=== PATIENT | female | born 1950 | race Asian ===

== ENCOUNTER 2024-03-07 09:17 | Inpatient (IN) | payer OTHER ==
[2024-03-07 10:39] LABS: BASO % 0.7 % (0-2.0); EOS % 2.5 % (0-4.5); HEMATOCRIT 32.4 % (32.4-45.2); HEMOGLOBIN 10.8 GM/dL (10.7-15.3); MCH 28.3 pg (25.7-33.7); MCHC 33.2 g/dl (32.0-36.0); MEAN CELL VOLUME 85.3 fl (80-96); MEAN PLT VOLUME 6.5 fl (7.5-11.1); MONO % 7.9 % (3.8-10.2); NEUT % 57.9 % (42.8-82.8); PLATELET COUNT 321 10^3/uL (134-434); RDW 13.4 % (11.6-15.6); WHITE BLOOD COUNT 7.1 K/mm3 (4.0-10.0)
[2024-03-07 10:52] LABS: INR 0.98 (0.83-1.09); PROTHROMBIN TIME (PATIENT) 11.1 SEC (9.7-13.0)
[2024-03-07 10:54] LABS: ACTIVATED PTT 33.9 SECONDS (25.2-36.5)
[2024-03-07 11:18] LABS: POTASSIUM 4.1 mmol/L (3.5-5.1)
[2024-03-07 11:20] LABS: BLOOD UREA NITROGEN 15.3 mg/dL (7-18); CALCIUM 8.5 mg/dL (8.5-10.1)
[2024-03-07 11:21] LABS: ALBUMIN 3.4 g/dl (3.4-5.0)
[2024-03-07 11:24] LABS: CREATININE 0.7 mg/dL (0.55-1.3)
[2024-03-07 11:25] LABS: BILIRUBIN,TOTAL 0.3 mg/dL (0.2-1); TOT PROT 8.3 g/dl (6.4-8.2)
[2024-03-07] MEDS: LACTATED RINGERS SOLUTION 1,000 ML IV SCH (11:51)
[2024-03-07 18:14] VITALS: BMI 20.2
[2024-03-07 20:53] LABS: HEMATOCRIT 25.1 % (32.4-45.2); HEMOGLOBIN 8.2 GM/dL (10.7-15.3); MCH 27.7 pg (25.7-33.7); MCHC 32.7 g/dl (32.0-36.0); MEAN CELL VOLUME 84.9 fl (80-96); MEAN PLT VOLUME 6.6 fl (7.5-11.1); PLATELET COUNT 277 10^3/uL (134-434); RBC 2.95 M/mm3 (3.60-5.2); RDW 13.4 % (11.6-15.6); WHITE BLOOD COUNT 7.6 K/mm3 (4.0-10.0)
[2024-03-08] MEDS ORDERED: MAGNESIUM SULF 50% (8.12 MEQ/2 ML-1 GM VIAL) ONE (02:56)
[2024-03-08 02:59] LABS: HEMATOCRIT 24.7 % (32.4-45.2); HEMOGLOBIN 8.2 GM/dL (10.7-15.3); MCHC 33.4 g/dl (32.0-36.0); MEAN CELL VOLUME 83.8 fl (80-96); PLATELET COUNT 300 10^3/uL (134-434); RBC 2.95 M/mm3 (3.60-5.2); RDW 13.2 % (11.6-15.6); WHITE BLOOD COUNT 6.8 K/mm3 (4.0-10.0)
[2024-03-08] MEDS: MAGNESIUM 1GM/D5W - 1 GM/100 ML IVPB IVPB ONE (03:04)
[2024-03-08 07:47] LABS: BASO % 0.8 % (0-2.0); EOS % 1.1 % (0-4.5); HEMATOCRIT 24.7 % (32.4-45.2); HEMOGLOBIN 8.3 GM/dL (10.7-15.3); LYMPH % 38.9 % (8-40); MCH 28.5 pg (25.7-33.7); MCHC 33.6 g/dl (32.0-36.0); MEAN CELL VOLUME 84.7 fl (80-96); MEAN PLT VOLUME 6.8 fl (7.5-11.1); MONO % 7.2 % (3.8-10.2); PLATELET COUNT 281 10^3/uL (134-434); RBC 2.91 M/mm3 (3.60-5.2); RDW 13.5 % (11.6-15.6)
[2024-03-08 07:57] LABS: INR 1.03 (0.83-1.09); PROTHROMBIN TIME (PATIENT) 11.8 SEC (9.7-13.0)
[2024-03-08 08:11] LABS: POTASSIUM 3.5 mmol/L (3.5-5.1)
[2024-03-08 08:14] LABS: CALCIUM 8.2 mg/dL (8.5-10.1)
[2024-03-08 08:15] LABS: ALBUMIN 2.9 g/dl (3.4-5.0); BLOOD UREA NITROGEN 9.8 mg/dL (7-18); MAGNESIUM 2.4 mg/dL (1.8-2.4)
[2024-03-08 08:18] LABS: CREATININE 0.5 mg/dL (0.55-1.3); PHOSPHOROUS 3.3 mg/dL (2.5-4.9)
[2024-03-08 08:19] LABS: BILIRUBIN,TOTAL 0.4 mg/dL (0.2-1); TOT PROT 6.9 g/dl (6.4-8.2)
[2024-03-08] MEDS ORDERED: BISACODYL 5 MG TABLET.DR (FP) PO ONE (10:00)
[2024-03-08] MEDS: BISACODYL 5 MG TABLET.DR (FP) PO ONE (11:48)
[2024-03-08] MEDS: PEG 3350/NA SULF BICARB CL/KCL 4000 ML SOLN.RECON PO ONE (11:49)
[2024-03-08] MEDS: MAGNESIUM CITRATE 300 ML BOTTLE PO ONE (12:27)
[2024-03-08] MEDS: LACTATED RINGERS SOLUTION 1,000 ML IV SCH (12:30)
[2024-03-08 15:45] LABS: BASO % 0.7 % (0-2.0); EOS % 0.4 % (0-4.5); HEMATOCRIT 25.7 % (32.4-45.2); HEMOGLOBIN 8.5 GM/dL (10.7-15.3); LYMPH % 17.2 % (8-40); MCH 27.9 pg (25.7-33.7); MEAN CELL VOLUME 84.5 fl (80-96); MEAN PLT VOLUME 6.8 fl (7.5-11.1); MONO % 5.3 % (3.8-10.2); NEUT % 76.4 % (42.8-82.8); PLATELET COUNT 295 10^3/uL (134-434); RBC 3.04 M/mm3 (3.60-5.2); RDW 13.4 % (11.6-15.6); WHITE BLOOD COUNT 7.1 K/mm3 (4.0-10.0)
[2024-03-09 08:13] LABS: POTASSIUM 3.3 mmol/L (3.5-5.1)
[2024-03-09 08:17] LABS: IRON SERUM 35 ug/dL (50-175)
[2024-03-09 08:18] LABS: TOTAL IRON BINDING CAPACITY 255 ug/dL (250-450)
[2024-03-09 08:21] LABS: N-TERMINAL BNP 370.5 pg/ml (5-125)
[2024-03-09 08:21] LABS: HEMATOCRIT 21.5 % (32.4-45.2); HEMOGLOBIN 7.3 GM/dL (10.7-15.3); MCH 28.6 pg (25.7-33.7); MCHC 33.8 g/dl (32.0-36.0); MEAN CELL VOLUME 84.7 fl (80-96); MEAN PLT VOLUME 6.7 fl (7.5-11.1); NEUT % 56.6 % (42.8-82.8); PLATELET COUNT 276 10^3/uL (134-434); RBC 2.53 M/mm3 (3.60-5.2); RDW 13.3 % (11.6-15.6); WHITE BLOOD COUNT 6.1 K/mm3 (4.0-10.0)
[2024-03-09 08:22] LABS: BASO % 0.7 % (0-2.0); EOS % 1.6 % (0-4.5); MONO % 7.1 % (3.8-10.2)
[2024-03-09 08:23] LABS: ALBUMIN 2.7 g/dl (3.4-5.0); BLOOD UREA NITROGEN 7.2 mg/dL (7-18)
[2024-03-09 08:26] LABS: CREATININE 0.6 mg/dL (0.55-1.3)
[2024-03-09 08:27] LABS: BILIRUBIN,TOTAL 0.4 mg/dL (0.2-1); TOT PROT 6.4 g/dl (6.4-8.2)
[2024-03-09] MEDS: POTASSIUM CHLORIDE ORAL LIQUID 20 MEQ/15 ML PO ONE (16:40)
[2024-03-09] MEDS ORDERED: INSULIN ASPART SLIDING SCALE (NOVOLOG) 1 VIAL SQ ONE (18:08)
[2024-03-10 08:12] LABS: BLOOD UREA NITROGEN 6.7 mg/dL (7-18); CALCIUM 7.9 mg/dL (8.5-10.1)
[2024-03-10 08:13] LABS: ALBUMIN 2.7 g/dl (3.4-5.0)
[2024-03-10 08:16] LABS: CREATININE 0.6 mg/dL (0.55-1.3)
[2024-03-10 08:17] LABS: BILIRUBIN,TOTAL 0.2 mg/dL (0.2-1); TOT PROT 6.8 g/dl (6.4-8.2)
[2024-03-10 08:21] LABS: BASO % 0.8 % (0-2.0); EOS % 2.4 % (0-4.5); HEMATOCRIT 20.9 % (32.4-45.2); LYMPH % 42.8 % (8-40); MCH 28.5 pg (25.7-33.7); MCHC 33.5 g/dl (32.0-36.0); MEAN CELL VOLUME 85.2 fl (80-96); MEAN PLT VOLUME 6.8 fl (7.5-11.1); MONO % 6.2 % (3.8-10.2); NEUT % 47.8 % (42.8-82.8); PLATELET COUNT 292 10^3/uL (134-434); RBC 2.45 M/mm3 (3.60-5.2); RDW 13.4 % (11.6-15.6); WHITE BLOOD COUNT 6.1 K/mm3 (4.0-10.0)
[2024-03-10] MEDS: POLYETHYLENE GLYCOL 3350 255 GM BTL PO ONE (16:43)
[2024-03-11] MEDS: SODIUM PHOSPHATE/NA BIPHOS 133 ML ENEMA RC ONE (06:58)
[2024-03-11 07:39] LABS: ALBUMIN 2.8 g/dl (3.4-5.0); CALCIUM 8.1 mg/dL (8.5-10.1)
[2024-03-11 07:40] LABS: BLOOD UREA NITROGEN 5.2 mg/dL (7-18)
[2024-03-11 07:42] LABS: CREATININE 0.6 mg/dL (0.55-1.3)
[2024-03-11 07:44] LABS: BILIRUBIN,TOTAL 0.4 mg/dL (0.2-1); TOT PROT 6.8 g/dl (6.4-8.2)
[2024-03-11 08:03] LABS: POTASSIUM 3.6 mmol/L (3.5-5.1)
[2024-03-11 08:34] LABS: BASO % 0.9 % (0-2.0); EOS % 3.8 % (0-4.5); HEMATOCRIT 25.6 % (32.4-45.2); HEMOGLOBIN 8.7 GM/dL (10.7-15.3); LYMPH % 40.6 % (8-40); MCH 29.1 pg (25.7-33.7); MCHC 33.9 g/dl (32.0-36.0); MEAN CELL VOLUME 85.9 fl (80-96); MEAN PLT VOLUME 6.9 fl (7.5-11.1); MONO % 6.8 % (3.8-10.2); NEUT % 47.9 % (42.8-82.8); PLATELET COUNT 313 10^3/uL (134-434); RBC 2.98 M/mm3 (3.60-5.2); RDW 13.3 % (11.6-15.6); WHITE BLOOD COUNT 6.7 K/mm3 (4.0-10.0)
[2024-03-11 12:08] VITALS: RESP 18
[2024-03-11 16:27] VITALS: BP 129/64; PULSE 86; TEMP 98.2
[2024-03-12] MEDS ORDERED: POLYETHYLENE GLYCOL (HEALTHYLAX) 3350 17 GM PACKET PO SCH (10:00)
== END 2024-03-11 16:33 | disposition home or self-care (01) | DRG 378 ==
LOC: JER 09:17 → JERBED 09:53 → J6S 17:49 → J4W 03-08 02:06
PROVIDERS: ADMIT Internal Medicine; ATTEND Internal Medicine
PROC: 30233N1 Transfusion of Nonautologous Red Blood Cells into Peripheral Vein, Percutaneous Approach (ICD-10-PCS; 2024-03-11)
PROC: 0DJD8ZZ Inspection of Lower Intestinal Tract, Via Natural or Artificial Opening Endoscopic (ICD-10-PCS; principal; 2024-03-11 10:00)
DX: K92.2 Gastrointestinal hemorrhage, unspecified (principal); D62 Acute posthemorrhagic anemia; I10 Essential (primary) hypertension; E78.5 Hyperlipidemia, unspecified; S39.012A Strain of muscle, fascia and tendon of lower back, initial encounter; X58.XXXA Exposure to other specified factors, initial encounter; Y93.89 Activity, other specified; Y92.89 Other specified places as the place of occurrence of the external cause; Y99.8 Other external cause status; R55 Syncope and collapse; I34.81 Nonrheumatic mitral (valve) annulus calcification; I35.0 Nonrheumatic aortic (valve) stenosis; I95.89 Other hypotension; D64.9 Anemia, unspecified; K64.8 Other hemorrhoids
CPT/HCPCS: 36415; 36430; 71045-TC-FY; 80053; 80061; 82272; 82728; 82962; 83036; 83540; 83550; 83735; 83880; 84100; 84439; 84443; 84479; 84484; 85025; 85027; 85610; 85651; 85730; 86140; 86850; 86900; 86901; 86922; 87040; 93005; 93010; 93306-TC; 99285-25; P9038; P9058